=== PATIENT | female | born 1970 | race Caucasian/White ===

== ENCOUNTER 2016-12-22 22:12 | Inpatient (IN) ==
[~2016-12-22 22:12] MED LIST: ACETAMINOPHEN 500 MG TABLET PO ONE
[2016-12-22] MEDS ORDERED: SODIUM CHLORIDE 0.9% 1,000 ML IV STA (23:00)
[2016-12-22] MEDS ORDERED: VANCOMYCIN INJ 1,250 MG in SODIUM CHLORIDE 0.9% 250 ML IV STA (23:00)
[2016-12-22] MEDS ORDERED: ALBUTEROL/IPRATROPIUM 3 ML NEB RESP TX STA (23:00)
[2016-12-22] MEDS ORDERED: PIPERACILLIN/TAZOBACTAM 3,375 MG in SODIUM CHLORIDE 0.9% 100 ML IV STA (23:04)
[2016-12-22 23:10] LABS: Basophils % 0.2 % (0.0-0.8); Eosinophils % 0.2 % (0.00-10.9); Hematocrit 40.5 VOL% (35.7-47.0); Hemoglobin 13.7 GM/DL (12.0-16.0); Immature Granulocytes % 0.9 %; Immature Granulocytes Absolute 0.15 #; Lymphocytes % 11.7 % (21.3-54.2); Mean Corpuscular HGB Conc 33.8 GM/DL (32-36); Mean Corpuscular Hemoglobin 29 PG (27-34); Mean Corpuscular Volume 85.3 FL (87-102); Monocytes # 0.8 10*3/uL (0.11-0.8); Monocytes % 4.6 % (1.7-12.7); Neutrophils # 14.2 10*3/uL (1.4-7.4); Neutrophils % 82.4 % (38.7-73.9); Platelet Count 290 T/CUMM (130-400); Red Blood Count 4.75 MC/CUMM (3.8-5.5); Red Cell Distribution Width 13.7 % (9.3-17.3); White Blood Count 17.2 T/CUMM (4-12)
[2016-12-22 23:15] LABS: PT Patient Result 10.7 SECS
[2016-12-22 23:32] LABS: Alanine Aminotransferase 23 U/L (13-56); Albumin 2.6 G/DL (3.4-5.0); Alkaline Phosphatase 123 U/L (45-117); Aspartate Amino Transferase 44 U/L (0-37); Blood Urea Nitrogen 16 MG/DL (7-18); Calcium 8.8 MG/DL (8.5-10.1); Glucose 203 MG/DL (74-106); Magnesium 1.8 MG/DL (1.8-2.4); Osmolality,Calculated 285.4 MOS/KG (273-304); Potassium 3.6 MMOL/L (3.5-5.1); Sodium 140 MMOL/L (136-145); Troponin I Only < 0.015 NG/ML (0.00-0.045)
[2016-12-23 00:03] LABS: ABG Base Excess -2.1 MMOL/L (-2.5-2.5); ABG HCO3 20.8 MMOL/L (20-26); ABG PCO2 30.5 MM HG (35-48); ABG PH 7.451 (7.35-7.45); ABG PO2 46.7 MM HG (80-95); ABG TCO2 21.7 MMOL/L (23-27)
[2016-12-23] MEDS ORDERED: VANCOMYCIN 1,000 MG VIAL ONE (00:09)
[2016-12-23] MEDS ORDERED: ALBUTEROL/IPRATROPIUM 3 ML NEB RESP TX PRN (00:12)
[2016-12-23] MEDS ORDERED: ACETAMINOPHEN 500 MG TABLET ONE (00:16)
[2016-12-23] MEDS ORDERED: SODIUM CHLORIDE 0.9% 100 ML IV ONE (00:55)
[2016-12-23] MEDS ORDERED: PIPERACILLIN/TAZOBACTAM 3,375 MG VIAL IV ONE (00:55)
[2016-12-23 02:03] LABS: Platelet Estimate Normal
[2016-12-23] MEDS: PIPERACILLIN/TAZOBACTAM 3,375 MG in SODIUM CHLORIDE 0.9% 100 ML IV SCH ×3 (05:31→17:26)
[2016-12-23] MEDS ORDERED: FUROSEMIDE 40 MG/4 ML VIAL IM ONE (07:32)
[2016-12-23] MEDS ORDERED: ALBUTEROL 2.5 MG/3 ML NEB RESP TX PRN (07:33)
[2016-12-23 07:43] LABS: Basophils % 0.3 % (0.0-0.8); Eosinophils % 0.1 % (0.00-10.9); Hematocrit 38.9 VOL% (35.7-47.0); Immature Granulocytes % 0.9 %; Immature Granulocytes Absolute 0.13 #; Lymphocytes # 2.3 10*3/uL (1.4-4.0); Mean Corpuscular HGB Conc 33.4 GM/DL (32-36); Mean Corpuscular Hemoglobin 29 PG (27-34); Mean Corpuscular Volume 85.9 FL (87-102); Mean Platelet Volume 11.5 FL (9.6-12.0); Monocytes # 0.8 10*3/uL (0.11-0.8); Monocytes % 5.1 % (1.7-12.7); Neutrophils # 11.8 10*3/uL (1.4-7.4); Neutrophils % 78.6 % (38.7-73.9); Platelet Count 290 T/CUMM (130-400); Red Blood Count 4.53 MC/CUMM (3.8-5.5); Red Cell Distribution Width 13.9 % (9.3-17.3)
[2016-12-23] MEDS: methylPREDNISolone SOD SUC 125 MG/2 ML VIAL IV SCH ×3 (08:14→21:56)
[2016-12-23] MEDS: NICOTINE 21 MG/24 HR PATCH TRANSDERM SCH (08:16)
[2016-12-23] MEDS: ENOXAPARIN 40 MG/0.4 ML SYRINGE SUBCUT SCH (08:16)
[2016-12-23] MEDS: PANTOPRAZOLE 40 MG TABLET PO SCH (08:17)
[2016-12-23] MEDS: LISINOPRIL 10 MG TABLET PO SCH (08:17)
[2016-12-23] MEDS: ASPIRIN 325 MG TABLET PO SCH (08:17)
[2016-12-23] MEDS: DOCUSATE SODIUM 100 MG CAPSULE PO SCH ×2 (08:17→21:57)
[2016-12-23 08:20] LABS: Calcium 7.9 MG/DL (8.5-10.1); Osmolality,Calculated 283.5 MOS/KG (273-304); Potassium 3.2 MMOL/L (3.5-5.1)
[2016-12-23 08:25] LABS: Giant Platelets Few; Hypochromasia 1+; Lymphocytes 15 % (20-55); Platelet Estimate Adequate; Segmented Neutrophils 81 % (50-85); Total Cells Counted 100
[2016-12-23 08:49] LABS: Apearance,Urine Slightly Hazy (Clear); Bilirubin,Urine Negative (Negative); Blood, Urine Negative (Negative); Glucose,Urine (UA) 50 mg/dL (Negative); Ketones,Urine 20 mg/dL (Negative); Mucus,Urine Occasional /LPF (Occasional); Nitrite,Urine Negative (Negative); Protein,Urine >=500 MG/DL; RBC,Urine 2 /HPF (0-4); Squamous Epithelial Cell,Urine Occasional /HPF (0-10); Urine Color Yellow (Yellow); Urine Specific Gravity 1.023 (1.001-1.035); WBC,Urine 5 /HPF (0-6)
[2016-12-23] MEDS: VANCOMYCIN INJ 1,250 MG in SODIUM CHLORIDE 0.45% 250 ML IV SCH ×3 (09:27→23:37)
[2016-12-23] MEDS ORDERED: ALBUTEROL 2.5 MG/3 ML NEB RESP TX ONE (10:06)
[2016-12-23] MEDS ORDERED: POTASSIUM CHLORIDE 20 MEQ TABLET PO ONE ×2 (12:14→19:48)
[2016-12-23] MEDS ORDERED: ZALEPLON 5 MG CAPSULE PO PRN (12:18)
[2016-12-23] MEDS: ALBUTEROL 2.5 MG/3 ML NEB RESP TX SCH (20:44)
[2016-12-23] MEDS ORDERED: FUROSEMIDE 40 MG/4 ML VIAL ONE (20:45)
[2016-12-23] MEDS ORDERED: FUROSEMIDE 40 MG/4 ML VIAL IV ONE (20:46)
[2016-12-24] MEDS: methylPREDNISolone SOD SUC 125 MG/2 ML VIAL IV SCH ×3 (02:19→16:37)
[2016-12-24] MEDS: PIPERACILLIN/TAZOBACTAM 3,375 MG in SODIUM CHLORIDE 0.9% 100 ML IV SCH ×4 (02:20→17:30)
[2016-12-24] MEDS: ACETAMINOPHEN 325 MG TABLET PO PRN (02:28)
[2016-12-24] MEDS ORDERED: FUROSEMIDE 40 MG/4 ML VIAL IV ONE (03:00)
[2016-12-24] MEDS: ALBUTEROL 2.5 MG/3 ML NEB RESP TX SCH ×7 (04:44→19:01)
[2016-12-24 06:19] LABS: Basophils # 0.1 10*3/uL (0.0-0.2); Basophils % 0.3 % (0.0-0.8); Hematocrit 40.9 VOL% (35.7-47.0); Hemoglobin 13.7 GM/DL (12.0-16.0); Immature Granulocytes % 1.3 %; Immature Granulocytes Absolute 0.25 #; Lymphocytes # 1.9 10*3/uL (1.4-4.0); Lymphocytes % 10.2 % (21.3-54.2); Mean Corpuscular HGB Conc 33.5 GM/DL (32-36); Mean Corpuscular Hemoglobin 29 PG (27-34); Mean Corpuscular Volume 85.7 FL (87-102); Mean Platelet Volume 11.5 FL (9.6-12.0); Monocytes # 0.6 10*3/uL (0.11-0.8); Monocytes % 3.3 % (1.7-12.7); Neutrophils # 15.7 10*3/uL (1.4-7.4); Neutrophils % 84.9 % (38.7-73.9); Platelet Count 359 T/CUMM (130-400); Red Blood Count 4.77 MC/CUMM (3.8-5.5); Red Cell Distribution Width 13.6 % (9.3-17.3); White Blood Count 18.5 T/CUMM (4-12)
[2016-12-24 06:52] LABS: Calcium 8.3 MG/DL (8.5-10.1); Magnesium 2.1 MG/DL (1.8-2.4); Osmolality,Calculated 291.5 MOS/KG (273-304); Potassium 3.6 MMOL/L (3.5-5.1)
[2016-12-24 06:57] LABS: Giant Platelets Few; Hypochromasia 1+; Lymphocytes 12 % (20-55); Platelet Estimate Adequate; Segmented Neutrophils 84 % (50-85); Total Cells Counted 100
[2016-12-24] MEDS ORDERED: GLUCAGON 1 MG VIAL IM PRN (07:55)
[2016-12-24] MEDS ORDERED: DEXTROSE 50% 25 GM/50 ML VIAL IV PRN (07:55)
[2016-12-24] MEDS: FUROSEMIDE 40 MG/4 ML VIAL IV SCH ×2 (09:00→16:01)
[2016-12-24] MEDS: ASPIRIN 325 MG TABLET PO SCH (09:03)
[2016-12-24] MEDS: NICOTINE 21 MG/24 HR PATCH TRANSDERM SCH (09:03)
[2016-12-24] MEDS: PANTOPRAZOLE 40 MG TABLET PO SCH (09:03)
[2016-12-24] MEDS: DOCUSATE SODIUM 100 MG CAPSULE PO SCH ×2 (09:04→22:11)
[2016-12-24] MEDS: metFORMIN 850 MG TABLET PO SCH ×2 (09:04→16:37)
[2016-12-24] MEDS: LISINOPRIL 10 MG TABLET PO SCH (09:04)
[2016-12-24] MEDS: ENOXAPARIN 40 MG/0.4 ML SYRINGE SUBCUT SCH (09:04)
[2016-12-24] MEDS: VANCOMYCIN INJ 1,250 MG in SODIUM CHLORIDE 0.45% 250 ML IV SCH ×2 (10:43→17:25)
[2016-12-24] MEDS: INSULIN REGULAR 100 UNIT/ML SUBCUT SCH ×3 (12:27→22:11)
[2016-12-24] MEDS ORDERED: ALBUTEROL 2.5 MG/3 ML NEB RESP TX ONE (13:35)
[2016-12-24] MEDS: ALPRAZolam 0.5 MG TABLET PO PRN (17:23)
[2016-12-25] MEDS: PIPERACILLIN/TAZOBACTAM 3,375 MG in SODIUM CHLORIDE 0.9% 100 ML IV SCH ×3 (00:07→17:55)
[2016-12-25] MEDS: methylPREDNISolone SOD SUC 125 MG/2 ML VIAL IV SCH ×3 (00:07→16:44)
[2016-12-25] MEDS: ACETAMINOPHEN 325 MG TABLET PO PRN (00:12)
[2016-12-25] MEDS: ALBUTEROL 2.5 MG/3 ML NEB RESP TX SCH ×5 (00:37→15:24)
[2016-12-25] MEDS: VANCOMYCIN INJ 1,250 MG in SODIUM CHLORIDE 0.45% 250 ML IV SCH ×2 (04:14→15:23)
[2016-12-25 05:18] LABS: Basophils % 0.1 % (0.0-0.8); Hemoglobin 12.7 GM/DL (12.0-16.0); Immature Granulocytes % 1.6 %; Immature Granulocytes Absolute 0.33 #; Lymphocytes # 1.8 10*3/uL (1.4-4.0); Lymphocytes % 9.1 % (21.3-54.2); Mean Corpuscular HGB Conc 33.4 GM/DL (32-36); Mean Corpuscular Hemoglobin 29 PG (27-34); Mean Corpuscular Volume 85.8 FL (87-102); Mean Platelet Volume 11.8 FL (9.6-12.0); Monocytes # 1.1 10*3/uL (0.11-0.8); Monocytes % 5.7 % (1.7-12.7); Neutrophils # 16.7 10*3/uL (1.4-7.4); Neutrophils % 83.5 % (38.7-73.9); Platelet Count 411 T/CUMM (130-400); Red Blood Count 4.43 MC/CUMM (3.8-5.5); Red Cell Distribution Width 13.9 % (9.3-17.3)
[2016-12-25 05:38] LABS: Giant Platelets Few; Hypochromasia 1+; Platelet Estimate Increased
[2016-12-25 05:53] LABS: Albumin 2.4 G/DL (3.4-5.0); Bilirubin,Total 0.5 MG/DL (0.2-1.0); Calcium 8.2 MG/DL (8.5-10.1); Osmolality,Calculated 290.8 MOS/KG (273-304); Phosphorous 5.3 MG/DL (2.5-4.9); Potassium 3.3 MMOL/L (3.5-5.1); Total Protein 6.9 G/DL (6.4-8.3)
[2016-12-25] MEDS ORDERED: LORazepam 2 MG/1 ML VIAL IV ONE (09:00)
[2016-12-25] MEDS: metFORMIN 850 MG TABLET PO SCH ×2 (09:01→16:44)
[2016-12-25] MEDS: INSULIN REGULAR 100 UNIT/ML SUBCUT SCH ×4 (09:01→21:27)
[2016-12-25] MEDS: FUROSEMIDE 40 MG/4 ML VIAL IV SCH ×2 (09:01→15:23)
[2016-12-25] MEDS: DOCUSATE SODIUM 100 MG CAPSULE PO SCH ×2 (09:02→21:08)
[2016-12-25] MEDS: PANTOPRAZOLE 40 MG TABLET PO SCH (09:02)
[2016-12-25] MEDS: ENOXAPARIN 40 MG/0.4 ML SYRINGE SUBCUT SCH (09:02)
[2016-12-25] MEDS: ASPIRIN 325 MG TABLET PO SCH (09:02)
[2016-12-25] MEDS: LISINOPRIL 10 MG TABLET PO SCH (09:03)
[2016-12-25] MEDS: NICOTINE 21 MG/24 HR PATCH TRANSDERM SCH (09:03)
[2016-12-25] MEDS: BISOPROLOL 5 MG TABLET PO SCH (09:04)
[2016-12-25] MEDS: POTASSIUM CHLORIDE RIDER 10 MEQ in PREMIX 1 EACH IV PRN ×4 (11:19→16:43)
[2016-12-25] MEDS: POTASSIUM CHLORIDE 20 MEQ TABLET PO SCH (16:45)
[2016-12-25] MEDS: INSULIN GLARGINE 100 UNIT/ML SUBCUT SCH (16:45)
[2016-12-25] MEDS: ALBUTEROL/IPRATROPIUM 3 ML NEB RESP TX SCH (19:32)
[2016-12-25] MEDS: ONDANSETRON 4 MG/2 ML VIAL IV PRN (21:13)
[2016-12-25] MEDS: ALPRAZolam 0.5 MG TABLET PO PRN (21:32)
[2016-12-26] MEDS: ALBUTEROL/IPRATROPIUM 3 ML NEB RESP TX SCH ×6 (00:08→22:39)
[2016-12-26] MEDS: PROMETHAZINE 25 MG/1 ML VIAL IM PRN ×2 (00:11→08:41)
[2016-12-26] MEDS ORDERED: HYDROmorphone 2 MG/1 ML VIAL IV PRN (01:01)
[2016-12-26] MEDS: methylPREDNISolone SOD SUC 125 MG/2 ML VIAL IV SCH ×2 (01:21→08:38)
[2016-12-26] MEDS: PIPERACILLIN/TAZOBACTAM 3,375 MG in SODIUM CHLORIDE 0.9% 100 ML IV SCH ×3 (01:22→17:28)
[2016-12-26] MEDS ORDERED: hydrALAZINE 20 MG/1 ML VIAL IV PRN (03:41)
[2016-12-26] MEDS: VANCOMYCIN INJ 1,250 MG in SODIUM CHLORIDE 0.45% 250 ML IV SCH (03:57)
[2016-12-26 04:55] LABS: Basophils % 0.2 % (0.0-0.8); Eosinophils % 0.1 % (0.00-10.9); Hematocrit 39.2 VOL% (35.7-47.0); Hemoglobin 12.9 GM/DL (12.0-16.0); Immature Granulocytes Absolute 0.55 #; Lymphocytes # 2.1 10*3/uL (1.4-4.0); Lymphocytes % 11.7 % (21.3-54.2); Mean Corpuscular HGB Conc 32.9 GM/DL (32-36); Mean Corpuscular Hemoglobin 28 PG (27-34); Mean Corpuscular Volume 86.3 FL (87-102); Mean Platelet Volume 11.8 FL (9.6-12.0); Monocytes # 1.5 10*3/uL (0.11-0.8); Platelet Count 435 T/CUMM (130-400); Red Blood Count 4.54 MC/CUMM (3.8-5.5); Red Cell Distribution Width 13.9 % (9.3-17.3); White Blood Count 18.2 T/CUMM (4-12)
[2016-12-26 05:30] LABS: Calcium 8.6 MG/DL (8.5-10.1); Magnesium 2.2 MG/DL (1.8-2.4); Osmolality,Calculated 286.8 MOS/KG (273-304); Potassium 3.7 MMOL/L (3.5-5.1)
[2016-12-26] MEDS ORDERED: hydrALAZINE 20 MG/1 ML VIAL IV ONE (05:33)
[2016-12-26 05:34] LABS: Lymphocytes 7 % (20-55); Segmented Neutrophils 86 % (50-85); Total Cells Counted 100
[2016-12-26 05:35] LABS: Platelet Estimate Normal
[2016-12-26] MEDS: FUROSEMIDE 40 MG/4 ML VIAL IV SCH (08:42)
[2016-12-26] MEDS: ENOXAPARIN 40 MG/0.4 ML SYRINGE SUBCUT SCH (08:44)
[2016-12-26] MEDS: NICOTINE 21 MG/24 HR PATCH TRANSDERM SCH (08:45)
[2016-12-26] MEDS: BISOPROLOL 5 MG TABLET PO SCH (08:47)
[2016-12-26] MEDS: metFORMIN 850 MG TABLET PO SCH ×2 (08:47→17:26)
[2016-12-26] MEDS: POTASSIUM CHLORIDE 20 MEQ TABLET PO SCH (08:47)
[2016-12-26] MEDS: PANTOPRAZOLE 40 MG TABLET PO SCH (08:48)
[2016-12-26] MEDS: LISINOPRIL 10 MG TABLET PO SCH (08:48)
[2016-12-26] MEDS: ASPIRIN 325 MG TABLET PO SCH (08:48)
[2016-12-26] MEDS: DOCUSATE SODIUM 100 MG CAPSULE PO SCH ×2 (08:48→20:46)
[2016-12-26] MEDS: INSULIN GLARGINE 100 UNIT/ML SUBCUT SCH (08:55)
[2016-12-26] MEDS: INSULIN REGULAR 100 UNIT/ML SUBCUT SCH ×4 (08:56→20:46)
[2016-12-26] MEDS ORDERED: BISACODYL 10 MG SUPP RECTAL ONE (09:14)
[2016-12-26] MEDS ORDERED: MAGNESIUM CITRATE 300 ML BOTTLE PO ONE (10:11)
[2016-12-26] MEDS: methylPREDNISolone SOD SUC 40 MG/1 ML VIAL IV SCH ×2 (10:19→22:08)
[2016-12-27] MEDS: PIPERACILLIN/TAZOBACTAM 3,375 MG in SODIUM CHLORIDE 0.9% 100 ML IV SCH ×2 (01:41→10:20)
[2016-12-27] MEDS: ALBUTEROL/IPRATROPIUM 3 ML NEB RESP TX SCH ×6 (02:55→23:38)
[2016-12-27 05:56] LABS: Basophils # 0.1 10*3/uL (0.0-0.2); Basophils % 0.3 % (0.0-0.8); Eosinophils % 0.1 % (0.00-10.9); Hematocrit 38.5 VOL% (35.7-47.0); Hemoglobin 12.7 GM/DL (12.0-16.0); Immature Granulocytes % 3.1 %; Immature Granulocytes Absolute 0.52 #; Lymphocytes # 3.4 10*3/uL (1.4-4.0); Lymphocytes % 20.3 % (21.3-54.2); Mean Corpuscular Hemoglobin 28 PG (27-34); Mean Corpuscular Volume 86.1 FL (87-102); Mean Platelet Volume 11.4 FL (9.6-12.0); Monocytes # 1.3 10*3/uL (0.11-0.8); Neutrophils # 11.3 10*3/uL (1.4-7.4); Neutrophils % 68.2 % (38.7-73.9); Platelet Count 402 T/CUMM (130-400); Red Blood Count 4.47 MC/CUMM (3.8-5.5); Red Cell Distribution Width 13.8 % (9.3-17.3); White Blood Count 16.6 T/CUMM (4-12)
[2016-12-27 06:43] LABS: Calcium 8.6 MG/DL (8.5-10.1); Magnesium 2.5 MG/DL (1.8-2.4); Osmolality,Calculated 284.8 MOS/KG (273-304); Potassium 4.1 MMOL/L (3.5-5.1)
[2016-12-27] MEDS: INSULIN REGULAR 100 UNIT/ML SUBCUT SCH ×4 (09:14→21:34)
[2016-12-27] MEDS: NICOTINE 21 MG/24 HR PATCH TRANSDERM SCH (09:14)
[2016-12-27] MEDS: FUROSEMIDE 40 MG/4 ML VIAL IV SCH (09:15)
[2016-12-27] MEDS: INSULIN GLARGINE 100 UNIT/ML SUBCUT SCH (09:15)
[2016-12-27] MEDS: ENOXAPARIN 40 MG/0.4 ML SYRINGE SUBCUT SCH (09:15)
[2016-12-27] MEDS: metFORMIN 850 MG TABLET PO SCH (09:16)
[2016-12-27] MEDS: PANTOPRAZOLE 40 MG TABLET PO SCH (09:16)
[2016-12-27] MEDS: LISINOPRIL 10 MG TABLET PO SCH (09:16)
[2016-12-27] MEDS: POTASSIUM CHLORIDE 20 MEQ TABLET PO SCH (09:16)
[2016-12-27] MEDS: ASPIRIN 325 MG TABLET PO SCH (09:16)
[2016-12-27] MEDS: BISOPROLOL 5 MG TABLET PO SCH (09:16)
[2016-12-27] MEDS: DOCUSATE SODIUM 100 MG CAPSULE PO SCH ×2 (09:16→21:34)
[2016-12-27] MEDS: methylPREDNISolone SOD SUC 40 MG/1 ML VIAL IV SCH (10:34)
[2016-12-27] MEDS ORDERED: methylPREDNISolone 4 MG TABLET PO SCH (12:30)
[2016-12-27] MEDS: methylPREDNISolone 4 MG TABLET PO SCH ×3 (12:47→21:33)
[2016-12-27] MEDS: AMOXICILLIN/CLAV 500 MG TABLET PO SCH ×2 (12:47→21:34)
[2016-12-27] MEDS: ACETAMINOPHEN 325 MG TABLET PO PRN (12:48)
[2016-12-27] MEDS: ONDANSETRON 4 MG/2 ML VIAL IV PRN (12:48)
[2016-12-27] MEDS ORDERED: POTASSIUM CHLORIDE 20 MEQ TABLET PO SCH (16:40)
[2016-12-27 17:25] LABS: Potassium 4.1 MMOL/L (3.5-5.1)
[2016-12-27] MEDS: metFORMIN 500 MG TABLET PO SCH (17:30)
[2016-12-28] MEDS: ALBUTEROL/IPRATROPIUM 3 ML NEB RESP TX SCH ×3 (03:22→11:24)
[2016-12-28 05:57] LABS: Basophils # 0.1 10*3/uL (0.0-0.2); Basophils % 0.3 % (0.0-0.8); Eosinophils # 0.1 10*3/uL (0.0-0.87); Eosinophils % 0.3 % (0.00-10.9); Hematocrit 38.1 VOL% (35.7-47.0); Hemoglobin 12.6 GM/DL (12.0-16.0); Immature Granulocytes % 3.5 %; Immature Granulocytes Absolute 0.56 #; Lymphocytes # 2.5 10*3/uL (1.4-4.0); Lymphocytes % 15.6 % (21.3-54.2); Mean Corpuscular HGB Conc 33.1 GM/DL (32-36); Mean Corpuscular Hemoglobin 29 PG (27-34); Mean Corpuscular Volume 87.2 FL (87-102); Mean Platelet Volume 11.7 FL (9.6-12.0); Monocytes # 1.2 10*3/uL (0.11-0.8); Monocytes % 7.1 % (1.7-12.7); Neutrophils # 11.8 10*3/uL (1.4-7.4); Neutrophils % 73.2 % (38.7-73.9); Platelet Count 347 T/CUMM (130-400); Red Blood Count 4.37 MC/CUMM (3.8-5.5); Red Cell Distribution Width 13.8 % (9.3-17.3); White Blood Count 16.1 T/CUMM (4-12)
[2016-12-28 06:25] LABS: Magnesium 2.1 MG/DL (1.8-2.4); Osmolality,Calculated 284.7 MOS/KG (273-304); Potassium 4.3 MMOL/L (3.5-5.1)
[2016-12-28 06:30] LABS: Giant Platelets Few; Hypochromasia 1+; Lymphocytes 8 % (20-55); Platelet Estimate Adequate; Segmented Neutrophils 84 % (50-85); Total Cells Counted 100
[2016-12-28] MEDS ORDERED: FUROSEMIDE 40 MG TABLET PO SCH (09:00)
[2016-12-28] MEDS: AMOXICILLIN/CLAV 500 MG TABLET PO SCH (09:45)
[2016-12-28] MEDS: BISOPROLOL 5 MG TABLET PO SCH (09:46)
[2016-12-28] MEDS: ASPIRIN 325 MG TABLET PO SCH (09:48)
[2016-12-28] MEDS: methylPREDNISolone 4 MG TABLET PO SCH ×2 (09:49→13:41)
[2016-12-28] MEDS: LISINOPRIL 10 MG TABLET PO SCH (09:49)
[2016-12-28] MEDS: metFORMIN 500 MG TABLET PO SCH (09:50)
[2016-12-28] MEDS: PANTOPRAZOLE 40 MG TABLET PO SCH (09:51)
[2016-12-28] MEDS: DOCUSATE SODIUM 100 MG CAPSULE PO SCH (09:51)
[2016-12-28] MEDS: INSULIN REGULAR 100 UNIT/ML SUBCUT SCH ×2 (09:52→13:31)
[2016-12-28] MEDS: NICOTINE 21 MG/24 HR PATCH TRANSDERM SCH (09:53)
[2016-12-28] MEDS: ENOXAPARIN 40 MG/0.4 ML SYRINGE SUBCUT SCH (09:54)
[2016-12-28] MEDS ORDERED: BUDESONIDE/FORMOTEROL 160-4.5 INHALER 6 GM INH SCH (10:30)
[2016-12-28 13:22] VITALS: BP 141/71
[2016-12-28] MEDS: INSULIN GLARGINE 100 UNIT/ML SUBCUT SCH (13:30)
== END 2016-12-28 16:48 | disposition home or self-care (01) | DRG 871 ==
LOC: N.ED 22:12 → N.EDINP 12-23 00:15 → SUATTDRO 12-23 00:15 → N.TELEN 12-23 00:56 → N.5E 12-26 11:51
PROVIDERS: ADMIT Internal Medicine Nephrology; ATTEND Internal Medicine